=== PATIENT | male | born 1950 | race Caucasian/White ===

== ENCOUNTER → 2019-09-12 | Outpatient (REF) | payer MEDICARE, BC | LOC: M LAB REF 14:12 | PROVIDERS: ATTEND Physician Assistant | DX: L57.0 Actinic keratosis (principal) ==

== ENCOUNTER → 2021-07-14 | Outpatient (REF) | payer MEDICARE, BC, OTHER | LOC: M SFHCWAGY 17:25 | PROVIDERS: ATTEND Physician Assistant | DX: L57.0 Actinic keratosis (principal); D18.01 Hemangioma of skin and subcutaneous tissue ==